=== PATIENT | female | born 1970 | race Caucasian/White ===

== ENCOUNTER 2019-06-18 00:24 | Emergency (ER) | payer SELFPAY ==
[2019-06-18 00:27] VITALS: BP 188/113; PULSE 98; RESP 16; TEMP 36.4; O2SAT 98; BMI 26.0
[2019-06-18 00:41] VITALS: BP 188/113; PULSE 98; RESP 16; TEMP 36.4; O2SAT 98
[2019-06-18] MEDS: 0.9% Normal Saline 1,000 ML 999 ML IV (00:54)
[2019-06-18] MEDS: Ketorolac 15 MG/ML Vial IV (00:54)
[2019-06-18] MEDS: Ondansetron 4 MG/2 ML Vial IV (00:54)
--- NOTE | 2019-06-18 02:21 | ED.DCSUM_ITS ---
- ER Visit Summary Date of Service: 06/18/19 Chief Complaint: Body aches History of Present Illness: The patient is a 49 F who presents for body aches for 3 days. Aches are all over. Nothing seemed to bring them on or make them worse. She tried Motrin but nothing seems to help. She also has fever, chills, and decreased sleep. History of hypertension. Physical Examination: Afebrile and vital signs unremarkable except blood pressure 188/113. Patient in no acute distress. Heart regular. Lungs clear. Abdomen soft. Skin appears normal. Test Results: Influenza test was negative. Emergency Department Course and Treatment: Patient has symptoms that sound like a viral syndrome. Influenza test was negative. She was treated with fluids, Zofran, and Toradol. She had improvement of her symptoms. No fevers here. Otherwise, her history, symptoms, and exam are reassuring. I believe she is appropriate for outpatient care. Continue [id number] remedies for cold and fever. Stay hydrated. She requested medicine for restless legs. I advised her to follow-up with her PCP for diagnosis and treatment of restless leg syndrome. Will prescribe a short course of muscle relaxers. Return for any new or worsening issues. Treatment Plan: As above Disposition: Discharge Impression: Viral illness This note was generated with [employer] dictation software. It may contain incorrect words, spelling, and punctuation that were not noted in review of the chart prior to signing ED Disposition - Plan for ED Patient: Referrals: Care Physician,No Primary [Primary Care Provider] -
--- NOTE | 2019-06-18 02:23 | ED.DEP ---
ED Disposition - Plan for ED Patient: Instructions: Myalgias Prescriptions: cycloBENZAPRine HCl [Flexeril] 10 mg PO TID PRN #20 tab PRN Reason: Muscle Spasm Prescription Printed Referrals: Thania Pedro [NON-STAFF] -
[2019-06-18 02:39] VITALS: BP 155/112; PULSE 72; RESP 16; O2SAT 96
== END 2019-06-18 02:40 | disposition home or self-care (01) ==
PROVIDERS: Emergency Provider Emergency Medicine
DX: B34.9 Viral infection, unspecified (principal); G25.81 Restless legs syndrome; I10 Essential (primary) hypertension
CPT/HCPCS: 87804; 99283; J7030; A4216; J2405